=== PATIENT | male | born 1980 | race Hispanic/Latino ===

== ENCOUNTER 2019-02-02 05:24 | Emergency (ER) | payer SELFPAY ==
[2019-02-02 06:10] LABS: Absolute Lymphocytes (CBC) 2.4 K/uL (0.7-4.9); Absolute Monocytes 0.6 K/uL (0.1-1.3); Absolute Neutrophil 5.5 K/uL (1.8-8.0); Basophils % 0.7 % (0-1.3); Eosinophils % 1.7 % (0-4.4); Hematocrit 45.1 % (39.6-49.0); Lymphocytes % 27.3 % (15.3-44.8); MPV 9.2 fL (7.6-11.3); Monocytes % 6.9 % (3.3-12.3); RBC Red Blood Cell Count 4.96 M/uL (4.33-5.43)
[2019-02-02 06:31] LABS: ALT/SGPT 32 U/L (12-78); AST/SGOT 31 U/L (15-37); Albumin 3.7 g/dL (3.4-5.0); Alkaline Phosphatase 74 U/L (45-117); BUN Blood Urea Nitrogen 8 mg/dL (7-18); Bicarbonate 25 mmol/L (21-32); Bilirubin Direct < 0.1 mg/dL (0-0.2); Bilirubin Total 0.3 mg/dL (0.2-1.0); Glucose Level 116 mg/dL (74-106); Lipase 126 U/L (73-393); Potassium 3.9 mmol/L (3.5-5.1); Protein, Total 6.8 g/dL (6.4-8.2); Sodium Level 141 mmol/L (136-145)
[2019-02-02] MEDS ORDERED: DICYCLOMINE HCL 10 MG CAP ONE (07:11)
--- NOTE | 2019-02-02 08:00 | ER ---
Nurse's Notes [facility] Name: Angel Beatty Jr Age: 38 yrs Sex: Male : 1980 Arrival Date: 02/02/2019 Time: 05:29 Bed 18 Private MD: Diagnosis: Unspecified abdominal pain;Diarrhea, unspecified Presentation: 02/02 05:39 Presenting complaint: Patient states: Abdominal pain all over, diarrhea x 2 days. tl2 Denies nausea or vomiting. Reports increased pain in lower quadrants. Denies fever. Transition of care: patient was not received from another setting of care. Onset of symptoms was January 31, 2019. Risk Assessment: Do you want to hurt yourself or someone else? Patient reports no desire to harm self or others. Initial Sepsis Screen: Does the patient meet any 2 criteria? No. Patient's initial sepsis screen is negative. Does the patient have a suspected source of infection? No. Patient's initial sepsis screen is negative. Care prior to arrival: None. 05:39 Method Of Arrival: Ambulatory tl2 05:39 Acuity: JOHN 3 tl2 Triage Assessment: 05:42 General: Appears in no apparent distress. uncomfortable, Behavior is calm, cooperative, tl2 appropriate for age. Pain: Complains of pain in right upper quadrant, left upper quadrant, right lower quadrant and left lower quadrant Pain does not radiate. Pain currently is 8 out of 10 on a pain scale. Quality of pain is described as crampy. Neuro: Level of Consciousness is awake, alert, obeys commands, Oriented to person, place, time, situation. Cardiovascular: Denies chest pain. Respiratory: Airway is patent Respiratory effort is even, unlabored, Respiratory pattern is regular, symmetrical. GI: Abdomen is non-distended, Reports diarrhea, Patient currently denies nausea, vomiting. : No signs and/or symptoms were reported regarding the genitourinary system. Derm: Skin is pink, warm \T\ dry. Historical: - Allergies: 05:42 No Known Allergies; tl2 - Home Meds: 05:42 None [Active]; tl2 - PMHx: 05:42 IBS; tl2 - PSHx: 05:42 None; tl2 - Immunization history:: Adult Immunizations up to date. - Social history:: Smoking status: Patient uses tobacco products, 1 pack per week. - Ebola Screening: : No symptoms or risks identified at this time. Screenin:45 Abuse screen: Denies threats or abuse. Nutritional screening: No deficits noted. tl2 Tuberculosis screening: No symptoms or risk factors identified. Fall Risk None identified. Assessment: 05:45 General: see triage assessment. tl2 06:57 Reassessment: Patient appears in no apparent distress at this time. Patient and/or tl2 family updated on plan of care and expected duration. Pain level reassessed. Patient is alert, oriented x 3, equal unlabored respirations, skin warm/dry/pink. 07:27 GI: Bowel sounds present X 4 quads. Abd is soft and non tender. tw2 07:59 Reassessment: Patient appears in no apparent distress at this time. Patient and/or tw2 family updated on plan of care and expected duration. Pain level reassessed. Patient is alert, oriented x 3, equal unlabored respirations, skin warm/dry/pink. Patient states feeling better. Patient states symptoms have improved. Vital Signs: 05:42 BP 138 / 87; Pulse 76; Resp 18; Temp 98(O); Pulse Ox 100% on R/A; Weight 84.37 kg; tl2 Height 5 ft. 3 in. (160.02 cm); Pain 8/10; 06:57 BP 116 / 77; Pulse 68; Resp 18; Pulse Ox 98% on R/A; tl2 07:58 BP 125 / 89; Pulse 57; Resp 17; Pulse Ox 100% on R/A; dh3 07:59 BP 122 / 78; Pulse 67; Resp 17; Pulse Ox 98% on R/A; tw2 05:42 Body Mass Index 32.95 (84.37 kg, 160.02 cm) tl2 ED Course: 05:29 Patient arrived in ED. es 05:41 Triage completed. tl2 05:42 Arm band placed on right wrist. tl2 05:45 Patient has correct armband on for positive identification. Placed in gown. Bed in low tl2 position. Call light in reach. Side rails up X 1. 05:52 Inserted saline lock: 22 gauge in right antecubital area, using aseptic technique. tl2 Blood collected. placed by milvia Ivory. 05:54 Initial lab(s) drawn, by ED staff, sent to lab. tl2 06:03 Tad Ceballos NP is PHCP. pm1 06:03 Isiah Lopez MD is Attending Physician. pm1 07:03 Lor Hernandez, RN is Primary Nurse. tw2 08:11 No provider procedures requiring assistance completed. IV discontinued, intact, tw2 bleeding controlled, No redness/swelling at site. Pressure dressing applied. Administered Medications: 07:00 Drug: Bentyl 20 mg Route: PO; tl2 07:59 Follow up: Response: No adverse reaction tw2 Outcome: 07:59 Discharge ordered by . pm1 08:11 Discharged to home ambulatory. tw2 08:11 Condition: stable 08:11 Discharge instructions given to patient, Instructed on discharge instructions, follow up and referral plans. no drinking with medication, no driving heavy equipment, medication usage, Demonstrated understanding of instructions, follow-up care, medications, Prescriptions given X 1. 08:12 Patient left the ED. tw2 Signatures: Stephenie Mcmahon Patrick, NP TAX EXPERT pm1 Lor Hernandez RN RN tw2 Erin Domingo RN RN tl2 Alyssa Brink [facility]
--- NOTE | 2019-02-02 08:00 | EDPHYS ---
Physician Documentation [facility] Name: Angel Beatty Jr Age: 38 yrs Sex: Male : 1980 Arrival Date: 02/02/2019 Time: 05:29 Bed 18 Private MD: ED Physician Isiah Lopez HPI: 02/02 06:10 This 38 yrs old Male presents to ER via Ambulatory with complaints of pm1 Abdominal Pain. 06:10 The patient presents with abdominal pain that is diffuse. Onset: The symptoms/episode pm1 began/occurred 2 day(s) ago. The symptoms do not radiate. Associated signs and symptoms: Pertinent positives: diarrhea, Pertinent negatives: nausea and vomiting, chest pain, constipation, dysuria, fever, headache, shortness of breath. The symptoms are described as crampy. Modifying factors: The symptoms are alleviated by nothing, the symptoms are aggravated by nothing. The patient has not recently seen a physician. Historical: - Allergies: 05:42 No Known Allergies; tl2 - Home Meds: 05:42 None [Active]; tl2 - PMHx: 05:42 IBS; tl2 - PSHx: 05:42 None; tl2 - Immunization history:: Adult Immunizations up to date. - Social history:: Smoking status: Patient uses tobacco products, 1 pack per week. - Ebola Screening: : No symptoms or risks identified at this time. ROS: 06:10 Constitutional: Negative for fever, chills, and weight loss, Eyes: Negative for injury, pm1 pain, redness, and discharge, ENT: Negative for injury, pain, and discharge, Neck: Negative for injury, pain, and swelling, Cardiovascular: Negative for chest pain, palpitations, and edema, Respiratory: Negative for shortness of breath, cough, wheezing, and pleuritic chest pain. 06:10 Back: Negative for injury and pain, : Negative for injury, bleeding, discharge, and swelling, MS/Extremity: Negative for injury and deformity, Skin: Negative for injury, rash, and discoloration, Neuro: Negative for headache, weakness, numbness, tingling, and seizure. 06:10 Abdomen/GI: Positive for abdominal pain, diarrhea, Negative for nausea and vomiting. Exam: 06:10 Constitutional: This is a well developed, well nourished patient who is awake, alert, pm1 and in no acute distress. Head/Face: Normocephalic, atraumatic. Eyes: Pupils equal round and reactive to light, extra-ocular motions intact. Lids and lashes normal. Conjunctiva and sclera are non-icteric and not injected. Cornea within normal limits. Periorbital areas with no swelling, redness, or edema. ENT: Nares patent. No nasal discharge, no septal abnormalities noted. Tympanic membranes are normal and external auditory canals are clear. Oropharynx with no redness, swelling, or masses, exudates, or evidence of obstruction, uvula midline. Mucous membranes moist. Neck: Trachea midline, no thyromegaly or masses palpated, and no cervical lymphadenopathy. Supple, full range of motion without nuchal rigidity, or vertebral point tenderness. No Meningismus. Chest/axilla: Normal chest wall appearance and motion. Nontender with no deformity. No lesions are appreciated. Cardiovascular: Regular rate and rhythm with a normal S1 and S2. No gallops, murmurs, or rubs. Normal PMI, no JVD. No pulse deficits. Respiratory: Lungs have equal breath sounds bilaterally, clear to auscultation and percussion. No rales, rhonchi or wheezes noted. No increased work of breathing, no retractions or nasal flaring. 06:10 Back: No spinal tenderness. No costovertebral tenderness. Full range of motion. Skin: Warm, dry with normal turgor. Normal color with no rashes, no lesions, and no evidence of cellulitis. MS/ Extremity: Pulses equal, no cyanosis. Neurovascular intact. Full, normal range of motion. 06:10 Abdomen/GI: Inspection: obese Bowel sounds: normal, Palpation: abdomen is soft and non-tender. 06:10 Neuro: Orientation: is normal, Motor: is normal, moves all fours. Vital Signs: 05:42 BP 138 / 87; Pulse 76; Resp 18; Temp 98(O); Pulse Ox 100% on R/A; Weight 84.37 kg; tl2 Height 5 ft. 3 in. (160.02 cm); Pain 8/10; 06:57 BP 116 / 77; Pulse 68; Resp 18; Pulse Ox 98% on R/A; tl2 07:58 BP 125 / 89; Pulse 57; Resp 17; Pulse Ox 100% on R/A; dh3 07:59 BP 122 / 78; Pulse 67; Resp 17; Pulse Ox 98% on R/A; tw2 05:42 Body Mass Index 32.95 (84.37 kg, 160.02 cm) tl2 MDM: 06:10 Patient medically screened. pm1 06:13 Data reviewed: vital signs. Data interpreted: Pulse oximetry: on room air is 100 %. pm1 Interpretation: normal. 06:52 Counseling: I had a detailed discussion with the patient and/or guardian regarding: the pm1 historical points, exam findings, and any diagnostic results supporting the discharge/admit diagnosis, lab results. 07:58 ED course: Pain improved with bentyl given in the ER. 12/19. pm1 02/02 05:43 Order name: Basic Metabolic Panel; Complete Time: 06:39 ea 02/02 05:43 Order name: CBC with Diff; Complete Time: 06:39 ea 02/02 05:43 Order name: Creatinine for Radiology; Complete Time: 06:39 ea 02/02 05:43 Order name: Hepatic Function; Complete Time: 06:39 ea 02/02 05:43 Order name: Lipase; Complete Time: 06:39 ea 02/02 05:43 Order name: IV Saline Lock; Complete Time: 05:56 ea 02/02 05:43 Order name: Labs collected and sent; Complete Time: 05:56 ea Administered Medications: 07:00 Drug: Bentyl 20 mg Route: PO; tl2 07:59 Follow up: Response: No adverse reaction tw2 Disposition: 20:28 Co-signature as Attending Physician, Isiah Lopez MD. rn Disposition: 02/02/19 07:59 Discharged to Home. Impression: Unspecified abdominal pain, Diarrhea, unspecified. - Condition is Stable. - Discharge Instructions: Abdominal Pain, Adult, Food Choices to Help Relieve Diarrhea, Adult, Diarrhea, Adult, Irritable Bowel Syndrome, Adult. - Prescriptions for Bentyl 20 mg Oral Tablet - take 1 tablet by ORAL route every 6 hours As needed; 20 tablet. - Medication Reconciliation Form, Thank You Letter, Antibiotic Education, Prescription Opioid Use, Work release form form. - Follow up: Emergency Department; When: As needed; Reason: Worsening of condition. Follow up: Private Physician; When: 2 - 3 days; Reason: Recheck today's complaints, Continuance of care, Re-evaluation by your physician. - Problem is new. - Symptoms have improved. Signatures: Dispatcher [employer] EDMS Isiah Lopez MD MD rn Marinas, Patrick, NP ENROLLMENT PROCESSOR pm1 Lor Hernandez RN RN tw2 Erin Domingo, RN RN tl2 Kristie Tejada RN RN ea Corrections: (The following items were deleted from the chart) 08:12 07:59 02/02/2019 07:59 Discharged to Home. Impression: Unspecified abdominal pain; tw2 Diarrhea, unspecified. Condition is Stable. Discharge Instructions: Abdominal Pain, Adult, Food Choices to Help Relieve Diarrhea, Adult, Diarrhea, Adult, Irritable Bowel Syndrome, Adult. Prescriptions for Bentyl 20 mg Oral Tablet - take 1 tablet by ORAL route every 6 hours As needed; 20 tablet. and Forms are Work release form, Medication Reconciliation Form, Thank You Letter, Antibiotic Education, Prescription Opioid Use. Follow up: Emergency Department; When: As needed; Reason: Worsening of condition. Follow up: Private Physician; When: 2 - 3 days; Reason: Recheck today's complaints, Continuance of care, Re-evaluation by your physician. Problem is new. Symptoms have improved. pm1
== END 2019-02-02 08:12 | disposition home or self-care (01) ==
LOC: ER 05:24
DX: R10.9 Unspecified abdominal pain (principal); R19.7 Diarrhea, unspecified; F17.210 Nicotine dependence, cigarettes, uncomplicated
CPT/HCPCS: 36415; 80048; 80076; 83690; 85025; 99284

== ENCOUNTER → 2019-04-18 | Emergency (ER) | payer OTHER, SELFPAY ==
--- OUTSIDE RECORDS SUMMARY | 2019-04-18 13:27 | XMS REPORT | Clinical Summary ---
:1980 Author Organization [facility] Address [address] [place] [id number] Care Team Providers Name Role Phone Ambar Reyes MD Primary Care Provider Allergies No Known Allergies Medications Medication Sig Dispensed Refills Start Date End Date Status atorvastatin (LIPITOR) 40 MG tablet 0 10/15/2017 Active dicyclomine (BENTYL) 20 mg tablet 0 11/04/2017 Active esomeprazole (NexIUM) 40 MG capsule 0 10/15/2017 Active Active Problems Not on file Social History Tobacco Use Types Packs/Day Years Used Date Former Smoker Smokeless Tobacco: Never Used Alcohol Use Drinks/Week oz/Week Comments Yes occassionally Sex Assigned at Date Recorded Not on file Job Start Date Occupation Industry Not on file Not on file Not on file Travel History Travel Start Travel End No recent travel history available. Last Filed Vital Signs Not on file Plan of Treatment Health Maintenance Due Date Last Done Comments INFLUENZA VACCINE 05/12/2019 Results Not on fileafter 04/17/2018
--- OUTSIDE RECORDS SUMMARY | 2019-04-18 13:27 | XMS REPORT ---
:1980 Author Organization [facility] Address [address] [place] [address] [address] [place] [address] Care Team Providers Name Role Phone Unavailable Unavailable Unavailable Payers Payer Name Policy Type Policy Number Effective Date Expiration Date Problems This patient has no known problems. Allergies, Adverse Reactions, Alerts Allergy Allergy Status Severity Reaction(s) Onset Inactive Treating Comments Name Type Date Date Clinician No Known DA Active U 2016-09 Allergies -28 00:00:0 0 Medications This patient has no known medications. Results Test Description Test Time Test Comments Text Results Atomic Results Result Comments - 2019-03-22 FAX: Ambar Beyer [phone] [facility]: [facility] FAX: Y ABDOMEN 12:02:00 Jared Gaitan MD COMPLETE Name: MIRNA DHALIWAL [facility] : 1980 Age/S: 39/M [address] [facility] Unit # : [id number] Loc: [place], [place] Phys : [place] [id number] Acct: [id number] Dis Date: Status: REG CLI PHONE #: [phone] Exam Date: 03/22/2019 1118 FAX #: [phone] Reason: RUQ PAIN,RLQ PAIN....... EXAMS: CPT CODE: [id number] US ABDOMEN COMPLETE [id number] EXAMINATION: - US ABDOMEN COMPLETE. LOCATION: S17. HISTORY: Right-sided abdominal pain. COMPARISON: CT abdomen/pelvis 04/15/2018. HIDA 07/14/14. TECHNIQUE: Examination of the liver , spleen, kidneys, pancreas, gallbladder, bile ducts, aorta and inferior vena cava was performed. FINDINGS: Examination is limited due to overlying bowel gas. The visualized liver parenchyma demonstrates diffusely increased echogenicity. The main portal vein is patent. There is no intra or extrahepatic biliary ductal dilatation. The common duct measures 2 mm. The gallbladder demonstrates dependent sludge without wall thickening. The visualized pancreatic head and body appears unremarkable, evaluation of the tail is limited by overlying bowel gas. Spleen is unremarkable in size. The right and left kidney measure 10.2 cm and 11.6 cm respectively. There is no hydronephrosis. The visualized portions of abdominal aorta and IVC appear unremarkable. IMPRESSION: Gallbladder sludge. Diffusely increased echogenicity of liver parenchyma, nonspecific, most commonly described in the setting of hepatic steatosis versus underlying parenchymal process. at 1202 Reported and signed by: Sonia Altamirano M.D. PAGE 1 Signed Report (CONTINUED) FAX: Ambar Beyer [facility]: [facility] FAX: Jared Oneil MD ------ Name: MIRNA DHALWIAL [facility] : 1980 Age/S: 39/M [address] [facility] Unit # : [id number] Loc: [place], [place] : [place] [id number] Acct: [id number] Dis Date: Status: REG CLI PHONE #: [phone] Exam Date: 03/22/2019 1118 FAX #: [phone] Reason: RUQ PAIN,RLQ PAIN....... EXAMS: CPT CODE: [id number] US ABDOMEN COMPLETE [id number] <Continued> CC: Ambar Reyes MD; Jared Gaitan MD Technologist: DOUGLAS BERRY Trnscrd Date/Time/By: 03/22/2019 (2919) : By: [email or web address] PAGE 2 Signed Report FAX: Ambar Beyer [phone] [facility]: REG FAX: Jared Oneil MD ------ Name: MIRNA DHALIWAL [facility] : 1980 Age/S: 39/M [address] [facility] Unit # : [id number] Loc: [place], [place] Phys : [place] [id number] Acct: [id number] Dis Date: Status: REG CLI PHONE #: [phone] Exam Date: 03/22/2019 1118 FAX #: [phone] Reason: RUQ PAIN,RLQ PAIN....... EXAMS: CPT CODE: [id number] US ABDOMEN COMPLETE [id number] <Continued> Orig Print D/T: S: 03/22/2019 (7928) PAGE 3 Signed Report
[2019-04-18 15:36] LABS: Absolute Lymphocytes (CBC) 2.5 K/uL (0.7-4.9); Basophils % 0.5 % (0-1.3); Eosinophils % 0.5 % (0-4.4); Hematocrit 47.3 % (39.6-49.0); Lymphocytes % 28.1 % (15.3-44.8); RBC Red Blood Cell Count 5.13 M/uL (4.33-5.43)
[2019-04-18 15:49] LABS: Urine Blood NEGATIVE (NEG); Urine Glucose NEGATIVE (NEG); Urine Protein NEGATIVE (NEG); Urine Specific Gravity 1.015 (1.005-1.030)
[2019-04-18 15:52] LABS: Urine RBC <5 /HPF (NONE SEEN)
[2019-04-18 15:53] LABS: Urine Bacteria <20 /HPF (NONE SEEN); Urine Culture Reflex Order NOT NEEDED
[2019-04-18 16:04] LABS: ALT/SGPT 20 U/L (12-78); AST/SGOT 19 U/L (15-37); Albumin 3.9 g/dL (3.4-5.0); Alkaline Phosphatase 64 U/L (45-117); BUN Blood Urea Nitrogen 10 mg/dL (7-18); Bicarbonate 26 mmol/L (21-32); Bilirubin Direct 0.1 mg/dL (0-0.2); Bilirubin Total 0.4 mg/dL (0.2-1.0); Glucose Level 97 mg/dL (74-106); Lipase 73 U/L (73-393); Potassium 3.9 mmol/L (3.5-5.1); Protein, Total 7.4 g/dL (6.4-8.2); Sodium Level 139 mmol/L (136-145)
--- NOTE | 2019-04-18 16:49 | RAD REPORT ---
EXAM DESCRIPTION: CT - Stone Protocol - 04/18/2019 4:31 pm CLINICAL HISTORY: Abdominal pain. Right flank pain COMPARISON: None. TECHNIQUE: Computed axial tomography of the abdomen pelvis was obtained without oral or IV contrast. Lack of IV and oral contrast limits evaluation of solid organs, bowel, and vessels. Coronal reformat jaycee images were obtained and reviewed. All CT scans are performed using dose optimization technique as appropriate and may include automated exposure control or mA/KV adjustment according to patient size. FINDINGS: A renal calculus is not seen. An ureteral calculus is not noted. A bladder calculus is not present. The liver, spleen, pancreas and adrenals appear grossly normal There is no evidence of diverticulitis. The appendix appears normal IMPRESSION: Negative for a genitourinary calculus
--- NOTE | 2019-04-18 17:08 | ER ---
Nurse's Notes [facility] Name: Angel Beatty Jr Age: 39 yrs Sex: Male : 1980 Arrival Date: 04/18/2019 Time: 13:25 Bed 28 Private MD: Diagnosis: Upper abdominal pain, unspecified Presentation: 04/18 13:47 Presenting complaint: Patient states: RUQ radiating to back that began "months ago". pt aa5 states "I had an ultrasound about a month ago but nobody called me back so I guess it was okay". Pt states "my doctor ordered a CT scan for April 29". Transition of care: patient was not received from another setting of care. Onset of symptoms was April 2019. Risk Assessment: Do you want to hurt yourself or someone else? Patient reports no desire to harm self or others. Initial Sepsis Screen: Does the patient meet any 2 criteria? No. Patient's initial sepsis screen is negative. Does the patient have a suspected source of infection? No. Patient's initial sepsis screen is negative. Care prior to arrival: None. 13:47 Method Of Arrival: Ambulatory aa5 13:47 Acuity: JOHN 3 aa5 Historical: - Allergies: 13:49 No Known Allergies; aa5 - PMHx: 13:49 ibs; aa5 - PSHx: 13:49 None; aa5 - Immunization history:: Adult Immunizations unknown. - Social history:: Smoking status: Patient uses tobacco products, smokes one-half pack cigarettes per day. - Ebola Screening: : No symptoms or risks identified at this time. Screenin:12 Abuse screen: Denies threats or abuse. Denies injuries from another. Nutritional rv screening: No deficits noted. Tuberculosis screening: No symptoms or risk factors identified. Fall Risk None identified. Assessment: 15:10 General: Appears in no apparent distress. comfortable, Behavior is calm, cooperative. rv Pain: Complains of pain in abdomen Pain radiates to back. Pain: Pain currently is 7 out of 10 on a pain scale. Quality of pain is described as dull, sharp. Neuro: Level of Consciousness is awake, alert, obeys commands, Oriented to person, place, time, situation. Cardiovascular: Patient's skin is warm and dry. Respiratory: Airway is patent. GI: Bowel sounds present X 4 quads. Abd is soft and non tender X 4 quads. : No signs and/or symptoms were reported regarding the genitourinary system. EENT: No signs and/or symptoms were reported regarding the EENT system. Derm: Skin is intact. Musculoskeletal: No signs and/or symptoms reported regarding the musculoskeletal system. 17:01 Reassessment: Patient appears in no apparent distress at this time. No changes from rv previously documented assessment. Patient and/or family updated on plan of care and expected duration. Pain level reassessed. Patient is alert, oriented x 3, equal unlabored respirations, skin warm/dry/pink. Vital Signs: 13:49 BP 134 / 83; Pulse 88; Resp 16 S; Temp 98.6(O); Pulse Ox 99% on R/A; Weight 81.65 kg aa5 (R); Height 5 ft. 3 in. (160.02 cm) (R); Pain 7/10; 15:12 BP 130 / 88; Pulse 86; Resp 17; Pulse Ox 98% on R/A; rv 17:02 BP 118 / 81; Pulse 81; Resp 17; Pulse Ox 97% on R/A; rv 13:49 Body Mass Index 31.89 (81.65 kg, 160.02 cm) aa5 ED Course: 13:25 Patient arrived in ED. rg4 13:47 Arm band placed on. aa5 13:49 Triage completed. aa5 14:40 Tae Arango, CLIFF is Primary Nurse. rv 14:52 Omar Larson PA is PHCP. cp 14:52 Toni Chavez MD is Attending Physician. cp 15:11 Patient has correct armband on for positive identification. Bed in low position. Call rv light in reach. Side rails up X 1. Adult w/ patient. Pulse ox on. NIBP on. 15:24 Inserted saline lock: 20 gauge in left antecubital area, using aseptic technique. Blood rv collected. by e27. 16:31 CT Stone Protocol In Process Unspecified. EDMS 17:15 No provider procedures requiring assistance completed. IV discontinued, intact, rv bleeding controlled, No redness/swelling at site. Pressure dressing applied. Administered Medications: No medications were administered Outcome: 17:05 Discharge ordered by . cp 17:15 Discharged to home ambulatory. rv 17:15 Condition: good 17:15 Discharge instructions given to patient, Instructed on discharge instructions, follow up and referral plans. medication usage, Demonstrated understanding of instructions, follow-up care, medications, Prescriptions given X 2. 17:15 Patient left the ED. rv Signatures: Dispatcher [employer] Dianne Hazel, RN RN aa5 Omar Larson PA PA cp Garcia, Rubi rg4 Tae Arango RN RN rv
--- NOTE | 2019-04-18 17:08 | EDPHYS ---
Physician Documentation [facility] Name: Angel Beatty Jr Age: 39 yrs Sex: Male : 1980 Arrival Date: 04/18/2019 Time: 13:25 Bed 28 Private MD: ED Physician Toni Chavez HPI: 04/18 15:25 This 39 yrs old Male presents to ER via Ambulatory with complaints of cp Abdominal Pain. 15:25 The patient presents with abdominal pain in the right upper quadrant. Onset: The cp symptoms/episode began/occurred and became worse 1 week(s) ago, months ago. The symptoms radiate to right back. Associated signs and symptoms: Pertinent negatives: nausea and vomiting, blood in stools, chest pain, constipation, diarrhea, dysuria, fever, palpitations, shortness of breath, testicular pain. The symptoms are described as waxing/waning. Modifying factors: the symptoms are aggravated by pressure. Historical: - Allergies: 13:49 No Known Allergies; aa5 - PMHx: 13:49 ibs; aa5 - PSHx: 13:49 None; aa5 - Immunization history:: Adult Immunizations unknown. - Social history:: Smoking status: Patient uses tobacco products, smokes one-half pack cigarettes per day. - Ebola Screening: : No symptoms or risks identified at this time. ROS: 15:30 Constitutional: Negative for body aches, chills, fever, poor PO intake. cp 15:30 Eyes: Negative for injury, pain, redness, and discharge. cp 15:30 ENT: Negative for drainage from ear(s), ear pain, sore throat, difficulty swallowing, difficulty handling secretions. 15:30 Cardiovascular: Negative for chest pain, edema, palpitations. 15:30 Respiratory: Negative for cough, shortness of breath, wheezing. 15:30 Abdomen/GI: Positive for abdominal pain, Negative for nausea, vomiting, and diarrhea, constipation, anorexia, black/tarry stool, rectal bleeding. 15:30 Back: Positive for radiated pain. 15:30 : Negative for urinary symptoms, hematuria, testicular pain 15:30 Skin: Negative for rash. 15:30 Neuro: Negative for altered mental status, headache, weakness. 15:30 All other systems are negative. Exam: 15:45 Constitutional: The patient appears in no acute distress, alert, awake, cp non-diaphoretic, non-toxic, well developed, well nourished. 15:45 Head/Face: Normocephalic, atraumatic. cp 15:45 Eyes: Periorbital structures: appear normal, Conjunctiva: normal, no exudate, no injection, Sclera: no appreciated abnormality, Lids and lashes: appear normal, bilaterally. 15:45 ENT: External ear(s): are unremarkable, Nose: is normal, Mouth: Lips: moist, Oral mucosa: pink and intact, moist, Posterior pharynx: is normal, airway is patent, no erythema, no exudate. 15:45 Chest/axilla: Inspection: normal, Palpation: is normal, no crepitus, no tenderness. 15:45 Cardiovascular: Rate: normal, Rhythm: regular. 15:45 Respiratory: the patient does not display signs of respiratory distress, Respirations: normal, no use of accessory muscles, no retractions, no splinting, no tachypnea, labored breathing, is not present, Breath sounds: are clear throughout, no decreased breath sounds, no stridor, no wheezing. 15:45 Abdomen/GI: Inspection: abdomen appears normal, Bowel sounds: active, all quadrants, Palpation: soft, in all quadrants, mild abdominal tenderness, in the right upper quadrant, rebound tenderness, is not appreciated, voluntary guarding, is not appreciated, involuntary guarding, is not appreciated. 15:45 Back: CVA tenderness, is absent. Vital Signs: 13:49 BP 134 / 83; Pulse 88; Resp 16 S; Temp 98.6(O); Pulse Ox 99% on R/A; Weight 81.65 kg aa5 (R); Height 5 ft. 3 in. (160.02 cm) (R); Pain 7/10; 15:12 BP 130 / 88; Pulse 86; Resp 17; Pulse Ox 98% on R/A; rv 17:02 BP 118 / 81; Pulse 81; Resp 17; Pulse Ox 97% on R/A; rv 13:49 Body Mass Index 31.89 (81.65 kg, 160.02 cm) aa5 MDM: 15:10 Patient medically screened. cp 15:45 Differential diagnosis: appendicitis, bowel obstruction, cholecystitis, Cholelithiasis, cp diverticulitis, gastritis, pancreatitis, Peptic Ulcer Disease, Perf. Duodenal Ulcer, Perf. Gastric Ulcer. 17:05 Data reviewed: vital signs, nurses notes, lab test result(s), radiologic studies, CT cp scan. 17:05 Counseling: I had a detailed discussion with the patient and/or guardian regarding: the cp historical points, exam findings, and any diagnostic results supporting the discharge/admit diagnosis, lab results, radiology results, the need for outpatient follow up, a family practitioner, to return to the emergency department if symptoms worsen or persist or if there are any questions or concerns that arise at home. Response to treatment: the patient's symptoms have mildly improved after treatment, and as a result, I will discharge patient. Special discussion: Based on the patient's Hx, exam, and Dx evaluation, there is no indication for emergent surgery or inpatient Tx. It is understood by the patient/guardian that if the Sx's persist or worsen they need to return immediately for re-evaluation. 04/18 15:19 Order name: Basic Metabolic Panel 04/18 15:19 Order name: CBC with Diff; Complete Time: 16:06 cp 04/18 15:19 Order name: Creatinine for Radiology; Complete Time: 16:06 cp 04/18 15:19 Order name: Hepatic Function; Complete Time: 16:06 cp 04/18 15:19 Order name: Lipase; Complete Time: 16:06 cp 04/18 15:19 Order name: Urine Microscopic Only; Complete Time: 16:06 cp 04/18 15:19 Order name: IV Saline Lock; Complete Time: 15:24 cp 04/18 15:19 Order name: Labs collected and sent; Complete Time: 15:24 cp 04/18 15:19 Order name: Urine Dipstick-Ancillary (obtain specimen); Complete Time: 15:29 cp 04/18 15:19 Order name: Basic Metabolic Panel; Complete Time: 16:06 EDMS 04/18 15:35 Order name: Urine Dipstick--Ancillary (enter results); Complete Time: 16:06 em1 04/18 16:07 Order name: CT Stone Protocol; Complete Time: 17:00 cp Administered Medications: No medications were administered Disposition: 04/18/19 17:05 Discharged to Home. Impression: Upper abdominal pain, unspecified. - Condition is Stable. - Discharge Instructions: Abdominal Pain, Adult. - Prescriptions for Bentyl 20 mg Oral Tablet - take 2 tablet by ORAL route every 6 hours As needed; 40 tablet. Pepcid 20 mg Oral Tablet - take 1 tablet by ORAL route every 12 hours for 10 days; 20 tablet. - Medication Reconciliation Form, Thank You Letter, Antibiotic Education, Prescription Opioid Use, Work release form form. - Follow up: Private Physician; When: 1 - 2 days; Reason: Recheck today's complaints. - Problem is an ongoing problem. - Symptoms have improved. Signatures: Dispatcher [employer] EDDianne Harvey, RN RN aa5 Omar Larson PA PA cp Tae Arango RN RN rv Corrections: (The following items were deleted from the chart) 17:15 17:05 04/18/2019 17:05 Discharged to Home. Impression: Upper abdominal pain, rv unspecified. Condition is Stable. Forms are Medication Reconciliation Form, Thank You Letter, Antibiotic Education, Prescription Opioid Use. Follow up: Private Physician; When: 1 - 2 days; Reason: Recheck today's complaints. Problem is an ongoing problem. Symptoms have improved. cp
--- OUTSIDE RECORDS SUMMARY | 2019-04-18 17:20 | XMS REPORT ---
:1980 [facility] Address [address] [place] [address] Dr. Gordillo. [address] [place] [address] Care Team Providers Name Role Phone Unavailable [...] Result Comments - 2019-03-22 FAX: Ambar Beyer [phone] [place]: St: [facility] FAX: Y ABDOMEN 12:02:00 Jared Gaitan MD COMPLETE Name: MIRNA DHALIWAL [facility] : 1980 Age/S: 39/M [address] [facility] Unit # : [id number] Loc: [place], [place] : [place] [id number] Acct: [id number] Dis Date: Status: REG CLI PHONE #: [phone] Exam Date: 03/22/2019 1118 FAX #: [phone] Reason: RUQ PAIN,RLQ PAIN....... EXAMS: CPT CODE: [id number] US ABDOMEN COMPLETE [id number] EXAMINATION: - US ABDOMEN COMPLETE. LOCATION: S17. [...] 1 Signed Report (CONTINUED) FAX: Ambar Beyer [place]: St: REG FAX: Jared Oneil MD ------ Name: MIRNA DHALIWAL [facility] : 1980 Age/S: 39/M [address] [facility] Unit # : [id number] Loc: [place], [place] : [place] [id number] Acct: [id number] Dis Date: Status: REG CLI PHONE #: [phone] Exam Date: 03/22/2019 1118 FAX #: [phone] Reason: RUQ PAIN,RLQ PAIN....... EXAMS: CPT CODE: [id number] US ABDOMEN COMPLETE 62958 <Continued> CC: Ambar Reyes MD; Jared Gaitan MD Technologist: DOUGLAS BERRY Trnscrd Date/Time/By: 03/22/2019 (3931) : By: [email or web address] PAGE 2 Signed Report FAX: Ambar Beyer [phone] [place]: St: REG FAX: Jared Oneil MD ------ Name: MIRNA DHALIWAL [facility] : 1980 Age/S: 39/M [address] [facility] Unit # : [id number] Loc: [place], [place] : [place] [id number] Acct: [id number] Dis Date: Status: REG CLI PHONE #: [phone] Exam Date: 03/22/2019 1118 FAX #: [phone] Reason: RUQ PAIN,RLQ PAIN....... EXAMS: CPT CODE: [id number] US ABDOMEN COMPLETE 28559 <Continued> Orig Print D/T: S: 03/22/2019 (7349) PAGE 3 Signed Report
--- OUTSIDE RECORDS SUMMARY | 2019-04-18 17:20 | XMS REPORT | Clinical Summary ---
:1980 Author Organization [facility] Address [address] [place] [id number] Care Team Providers Name Role Phone Ambar [...]
== END ==
LOC: ER 13:23
DX: R10.11 Right upper quadrant pain (principal); F17.210 Nicotine dependence, cigarettes, uncomplicated
CPT/HCPCS: 36415; 74176; 76377; 80048; 80076; 81003; 81015; 83690; 85025; 99284